=== PATIENT | female | born 1985 | race Caucasian/White ===

== ENCOUNTER 2018-03-01 21:20 | Emergency (ER) | payer OTHER ==
[~2018-03-01] VITALS: Ht 180.3 cm; Wt 93.0 kg
[2018-03-01 22:06] LABS: BASOPHILS ABSOLUTE AUTO 0.06 K/mm3 (0.00-0.23); BASOPHILS PERCENT AUTO 1 % (0-2); EOSINOPHILS ABSOLUTE AUTO 0.29 K/mm3 (0.00-0.68); EOSINOPHILS PERCENT AUTO 3 % (0-6); Hematocrit 35.7 % (33.0-51.0); Hemoglobin 11.6 g/dL (11.5-16.0); IMMATURE GRAN ABSOLUTE AUTO 0.06 K/mm3 (0.00-0.10); IMMATURE GRAN PERCENT AUTO 1 % (0-1); LYMPHOCYTES PERCENT AUTO 20 % (21-46); MONOCYTES ABSOLUTE AUTO 0.41 K/mm3 (0.16-1.47); MONOCYTES PERCENT AUTO 4 % (4-13); Mean Corpuscular HGB 28.9 pg (26.0-34.0); Mean Corpuscular HGB Conc 32.5 g/dL (31.5-36.5); Mean Corpuscular Volume 89 fL (80-100); NEUTROPHILS ABSOLUTE AUTO 7.04 K/mm3 (1.96-9.15); NEUTROPHILS PERCENT AUTO 72 % (41-73); Platelet Count 364 K/mm3 (150-400); RDW Coefficient Variation 12.3 % (11.7-14.2); RDW Standard Deviation 40.4 fL (35.1-46.3); Red Blood Cell Count 4.02 M/mm3 (3.80-5.20); White Blood Cell Count 9.76 K/mm3 (4.00-11.30)
[2018-03-01 22:38] LABS: Alanine Aminotransfer (ALT/SGP 155 U/L (12-78); Albumin, Blood 3.4 g/dL (3.4-5.0); Albumin/Globulin Ratio 0.9 (0.8-1.8); Alk Phos 169 U/L (50-136); Anion Gap 8 mmol/L (6-16); Aspartate Aminotrans (AST/SGOT 60 U/L (12-37); Bilirubin, Total 0.1 mg/dL (0.1-1.0); Blood Urea Nitrogen 13 mg/dL (8-24); Bun/Creatinine Ratio 13.1 (12.0-20.0); CO2, Blood 26 mmol/L (21-32); Calcium, Blood 8.2 mg/dL (8.5-10.1); Chloride, Blood 106 mmol/L (98-108); Globulin, Blood 3.9 g/dL (2.2-4.0); Glomerular Filtration Rate >60 (60-); Glucose, Blood 126 mg/dL (70-99); Potassium, Blood 3.1 mmol/L (3.5-5.5); Sodium, Blood 140 mmol/L (136-145); Total Protein, Blood 7.3 g/dL (6.4-8.2)
[2018-03-01 23:18] LABS: Source, Urine Clean Catch
[2018-03-01 23:22] LABS: Bilirubin, Urine Neg (Neg); Blood, Urine 4+ (Neg); Glucose Qualitative, Urine Neg (Neg); Ketones, Urine 1+ (Neg); Leukocyte Esterase, Urine Neg (Neg); Nitrite, Urine Neg (Neg); Protein, Urine 2+ (Neg); Specific Gravity, Urine 1.025 (1.003-1.022); Urobilinogen, Urine NORM (Normal)
[2018-03-01 23:27] LABS: Appearance, Urine Hazy (Clear); Color, Urine Yellow (P-Yellow)
[2018-03-01 23:28] LABS: Amorphous Light ({null, 0-Heavy}); Bacteria Rare /hpf; Mucus Mod ({null, 0-Heavy}); Red Blood Cells, Urine 0-2 /hpf (0-2); Squamous Epithelial Cells Few /hpf (Few); White Blood Cells, Urine Not Seen /hpf (0-5)
[2018-03-01] MEDS ORDERED: IRON PO (23:50)
[2018-03-01] MEDS ORDERED: MEDR10 PO (23:52)
== END 2018-03-02 00:06 | disposition home or self-care (01) ==
LOC: ER 21:20
PROVIDERS: Emergency Medicine
DX: N93.9 Abnormal uterine and vaginal bleeding, unspecified (principal); Z87.891 Personal history of nicotine dependence; Z79.899 Other long term (current) drug therapy
CPT/HCPCS: 80053; 81001; 84703; 85025; 86900; 86901; 99284

== ENCOUNTER 2018-09-03 20:14 | Emergency (ER) | payer OTHER ==
[~2018-09-03] VITALS: Ht 180.3 cm; Wt 93.0 kg
[~2018-09-03 20:14] MED LIST: IRON PO; MEDR10 PO
== END 2018-09-03 21:44 | disposition home or self-care (01) ==
LOC: ER 20:14
DX: L72.8 Other follicular cysts of the skin and subcutaneous tissue (principal); Z79.899 Other long term (current) drug therapy; Z87.891 Personal history of nicotine dependence
CPT/HCPCS: 99283

== ENCOUNTER → 2018-10-03 | Outpatient (CLI) | payer OTHER ==
[~2018-10-03] MED LIST changes: +Bactrim Ds Tab1 EACH PO; +CLIN300 PO; +ESCI10 PO; +ESTARYLLA1 EACH PO; +FERSU300 PO
[2018-10-07 15:07] LABS: HPV 16 Negative (Negative); HPV 18 Negative (Negative); HPV OTHER HR TYPES Negative (Negative)
== END | disposition home or self-care (01) ==
LOC: LAB EV 14:58 → LAB SHORT 14:58
PROVIDERS: Physician Assistant
DX: Z01.419 Encounter for gynecological examination (general) (routine) without abnormal findings (principal); L02.31 Cutaneous abscess of buttock
CPT/HCPCS: 87070; 87075; 87077; 87147; 87186; 87205; 87624; G0145

== ENCOUNTER 2018-10-14 21:44 | Inpatient (IN) | payer OTHER ==
[~2018-10-14] VITALS: Ht 177.8 cm; Wt 99.4 kg
[~2018-10-14 21:44] MED LIST changes: -Bactrim Ds Tab1 EACH PO; -CLIN300 PO; -ESCI10 PO; -ESTARYLLA1 EACH PO; -FERSU300 PO
[2018-10-14] MEDS ORDERED: Bactrim Ds Tab1 EACH PO (22:31)
[2018-10-14] MEDS ORDERED: ESCI10 PO (22:32)
[2018-10-14 22:59] LABS: BASOPHILS ABSOLUTE AUTO 0.03 K/mm3 (0.00-0.23); BASOPHILS PERCENT AUTO 0 % (0-2); EOSINOPHILS ABSOLUTE AUTO 0.06 K/mm3 (0.00-0.68); EOSINOPHILS PERCENT AUTO 1 % (0-6); Hemoglobin 11.4 g/dL (11.5-16.0); IMMATURE GRAN ABSOLUTE AUTO 0.02 K/mm3 (0.00-0.10); IMMATURE GRAN PERCENT AUTO 0 % (0-1); LYMPHOCYTES ABSOLUTE AUTO 0.93 K/mm3 (0.84-5.20); LYMPHOCYTES PERCENT AUTO 11 % (21-46); MONOCYTES PERCENT AUTO 7 % (4-13); Mean Corpuscular HGB 27.3 pg (26.0-34.0); Mean Corpuscular HGB Conc 31.7 g/dL (31.5-36.5); Mean Corpuscular Volume 86 fL (80-100); Mean Platelet Volume 10.6 fL (9.1-12.4); NEUTROPHILS ABSOLUTE AUTO 7.14 K/mm3 (1.96-9.15); NEUTROPHILS PERCENT AUTO 81 % (41-73); Platelet Count 263 K/mm3 (150-400); RDW Coefficient Variation 14.2 % (11.7-14.2); RDW Standard Deviation 44.3 fL (35.1-46.3); Red Blood Cell Count 4.17 M/mm3 (3.80-5.20); White Blood Cell Count 8.78 K/mm3 (4.00-11.30)
[2018-10-14 23:17] LABS: Alanine Aminotransfer (ALT/SGP 43 U/L (12-78); Albumin, Blood 3.3 g/dL (3.4-5.0); Albumin/Globulin Ratio 0.8 (0.8-1.8); Alk Phos 173 U/L (50-136); Anion Gap 8 mmol/L (6-16); Aspartate Aminotrans (AST/SGOT 31 U/L (12-37); Bilirubin, Total 0.2 mg/dL (0.1-1.0); Blood Urea Nitrogen 10 mg/dL (8-24); Bun/Creatinine Ratio 12.1 (12.0-20.0); CO2, Blood 24 mmol/L (21-32); Calcium, Blood 8.6 mg/dL (8.5-10.1); Chloride, Blood 107 mmol/L (98-108); Creatinine, Blood 0.83 mg/dL (0.40-1.00); Globulin, Blood 4.4 g/dL (2.2-4.0); Glomerular Filtration Rate >60 (60-); Glucose, Blood 89 mg/dL (70-99); Potassium, Blood 3.9 mmol/L (3.5-5.5); Sodium, Blood 139 mmol/L (136-145); Total Protein, Blood 7.7 g/dL (6.4-8.2)
--- NOTE | 2018-10-15 04:15 | NUR ---
REPORT RECIEVED FROM KIMANI TREVINO RN AND AWAITING PT T/F TO ROOM 302.
[2018-10-15] MEDS ORDERED: ESTARYLLA1 EACH PO (04:44)
--- NOTE | 2018-10-15 05:25 | NUR ---
T/F AND SUMMARY: PT T/F'D TO ROOM 302 VIA W/C AT 0426 W/ AT BEDSIDE. SHE'S A/OX4, INDEPENDENT IN ROOM AND IS COOPERATIVE W/CARE. PHOTOS OF RFA ABSESS WERE TAKEN AND CONSENT SIGNED. ABSESS DRAINS COPIOUS AMTS OF THICK PURULENT HEMOSANGUINOUS DISCHARGE AND HAS SURROUNDING ERYTHEMA. SHE REPORTS PAIN AT SITE W/TYLENOL PRN RECIEVED, AWAITING EFFECT. SURGICAL CX WAS CALLED TO ANSWERING SERVICE AND SHE REMAINS NPO FOR POSSIBLE PROCEDURE. SCD'S APPLIED. PT IN CONTACT ISO FOR HX MRSA AND RECENT BOIL ON BUTTOCKS. SHE IS CURRENTLY FINISHING X7 DAY BACTRIM ABX. PT DENIES COMPLAINTS OTHERWISE. VSS/AFEBRILE, NO ACUTE CHANGES. WCTM AND REPORT TO DAY RN.
--- NOTE | 2018-10-15 05:25 | NUR ---
CALLED SURGICAL CX TO DR.SPENCE KINNEY.SERVICE ON 10/15/18 AT 4337.
--- NOTE | 2018-10-15 15:37 | NUR ---
PT TRANSPORTED VIA GURNEY TO OR FOR PROCEDURE
--- NOTE | 2018-10-15 15:48 | NUR ---
INTO SDS VIA GURNEY. PT REPORTS 6-09/04 RIGHT ARM PAIN. ABSORBENT DRESSING AND COBAN IN PLACE. HISTORY AND ALLERGIES REVIEWED. NPO SINCE 0800 THIS AM. LUNGS CLEAR.
--- NOTE | 2018-10-15 17:01 | NUR ---
10/15/18 1701 Radha Reece PT ON SCHEDULED ANTIBIOTICS
--- NOTE | 2018-10-15 18:39 | NUR ---
RETURN TO ROOM VIA CIRA BERRY SLEEPY BUT ABLE TO SLOWLY STAND AND TRANSFER SELF TO BED. WOUND VAC IN PLACE TO RT ARM. DENIES PAIN AT THIS TIME. DBP IS ELEVATED AT 102, WILL MONITOR.
--- NOTE | 2018-10-16 06:31 | NUR ---
NOC SHIFT SUMMARY PT IS PLEASANT AND COOPERATIVE WITH CARE. SHE HAD A CYST REMOVED FROM HER R UPPER ARM ON 10/15. WOUND VAC TO SITE AND IS DRAINING BLOODY FLUID. AAOX4, RESP EVEN AND UNLABORED. VSS. SHE HAS SLEPT MUCH OF NIGHT. APPEARS IN NO ACUTE DISTRESS. AND NIECE IN ROOM. WILL CONTINUE TO MONITOR.
[2018-10-16 08:14] LABS: BASOPHILS ABSOLUTE AUTO 0.02 K/mm3 (0.00-0.23); BASOPHILS PERCENT AUTO 0 % (0-2); EOSINOPHILS ABSOLUTE AUTO 0.13 K/mm3 (0.00-0.68); EOSINOPHILS PERCENT AUTO 2 % (0-6); Hematocrit 32.5 % (33.0-51.0); IMMATURE GRAN ABSOLUTE AUTO 0.01 K/mm3 (0.00-0.10); IMMATURE GRAN PERCENT AUTO 0 % (0-1); LYMPHOCYTES ABSOLUTE AUTO 1.75 K/mm3 (0.84-5.20); LYMPHOCYTES PERCENT AUTO 33 % (21-46); MONOCYTES ABSOLUTE AUTO 0.26 K/mm3 (0.16-1.47); MONOCYTES PERCENT AUTO 5 % (4-13); Mean Corpuscular HGB 27.1 pg (26.0-34.0); Mean Corpuscular HGB Conc 30.8 g/dL (31.5-36.5); Mean Corpuscular Volume 88 fL (80-100); Mean Platelet Volume 10.3 fL (9.1-12.4); NEUTROPHILS PERCENT AUTO 60 % (41-73); Platelet Count 240 K/mm3 (150-400); RDW Coefficient Variation 14.3 % (11.7-14.2); RDW Standard Deviation 45.3 fL (35.1-46.3); Red Blood Cell Count 3.69 M/mm3 (3.80-5.20); White Blood Cell Count 5.37 K/mm3 (4.00-11.30)
[2018-10-16 08:38] LABS: Anion Gap 7 mmol/L (6-16); Blood Urea Nitrogen 12 mg/dL (8-24); Bun/Creatinine Ratio 15.5 (12.0-20.0); CO2, Blood 27 mmol/L (21-32); Calcium, Blood 8.2 mg/dL (8.5-10.1); Chloride, Blood 107 mmol/L (98-108); Creatinine, Blood 0.78 mg/dL (0.40-1.00); Glomerular Filtration Rate >60 (60-); Glucose, Blood 98 mg/dL (70-99); Potassium, Blood 4.2 mmol/L (3.5-5.5); Sodium, Blood 141 mmol/L (136-145)
[2018-10-16 12:30] LABS: Vancomycin, Trough 11.2 ug/mL (5.0-10.0)
--- NOTE | 2018-10-16 18:49 | NUR ---
SHIFT SUMMARY PT INDEPENDENT IN ROOM. FAMILY AT BEDSIDE MOST OF DAY. WOUND VAC IN PLACE AND HAD A SMALL AMOUNT OF SEROSANGUINESS DRAINAGE. DRESSING INTACT TO RFA WITH REDNESS AROUND THE SITE THAT IS WARM AND TENDER. WILL REPORT CONDITION TO ONCOMING SHIFT.
--- NOTE | 2018-10-17 05:56 | NUR ---
SHIFT SUMMARY PT REPORTS INCREASED REDNESS AND SWELLING TO RUE DURING BEDSIDE REPORT. RUE ELEVATED, TYLENOL GIVEN TO REDUCE SWELLING, PT REPORTS IMPROVEMENT. DENIES ANY PAIN OR DISCOMFORT TO SITE. WOUND VAC IN PLACE CONTINUOUS SUCTION PATENT, DRESSING C/D/I. SMALL AMOUNT OF SS DRAINAGE NOTED. PT IS INDEPENDENT IN . VANCOMYCIN ADMINISTERED PER EMAR. AWAITING PATHOLOGY + SENSITIVITY FOR D/C ON ORAL ABX. VSS, AFEBRILE. WILL CONT TO MONITOR AND PROVIDE CARE UNTIL PRESUMED BY ONCOMING RN.
--- NOTE | 2018-10-17 16:43 | NUR ---
PATIENT A/OX4, UP INDPENDENTLY IN ROOM. VSS THIS SHIFT, ON RA. WOUND VAC TO R FA SURGICAL SITE. VANCO D/C'D AND PATIENT SWITCHED TO PO CLEOCIN. REPORTS VERY MILD PAIN, DENIES NEED FOR MEDICATION. PLAN IS TO D/C HOME TOMORROW AFTER WOUND VAC IS CHANGED AND MEASUREMENT TAKEN OF WOUND. WOUND CLINIC APPT SET UP FOR SUNDAY FOR DRESSING CHANGES. CALM AND COOPERATIVE WITH CARE, CALLS APPROPRIATELY FOR ASSISTANCE.
--- NOTE | 2018-10-18 05:50 | NUR ---
SHIFT SUMMARY NO ACUTE CHANGES TONIGHT. WOUND VAC TO R. FOREARM IS PATENT AND DRAINING SMALL AMOUNT OF SS FLUID. MILD REDNESS AND SWELLING TO AREA, RUE ELEVATED ON PILLOWS. PT DENIES ANY PAIN OR DISCOMFORT. PO CLINDAMYCIN ADMINISTERED PER ORDERS. PLAN FOR PT IS D/C HOME WITH WOUND CLINIC VISITS ONCE WOUND VAC IS APPROVED. IN ORDER TO BE APPROVED, MUST HAVE DRESSING CHANGE TODAY WITH NEW PHOTOS TAKEN AND LENGTH,WIDTH,DEPTH MEASUREMENTS COMPLETED. PT HAS WOUND CLINIC VISIT OCT 21. WILL CONT TO MONITOR AND PROVIDE CARE UNTIL PRESUMED BY ONCOMING RN.
--- NOTE | 2018-10-18 07:25 | NUR ---
ASSUMED CARE OF PT- BEDSIDE REPORT COMPLETED WITH NIGHT RN KATHY. PT ALERT AND ORIENTED AND INDEPENDENT IN THE ROOM. PT HAS Hx ANXIETY PER REPORT NO OTHER MEDICAL Hx. PT POSSITIVE CULTURE FOR MRSA IN THE WOUND. I&D PERFORMED WOUND VAC IN PLACE. PER REPORT FROM NIGHT RN, WOUND VAC NEEDS TO BE CHANGED WITH WOUND MEASUREMENTS AND PICTURES TODAY; TO FACILITATE PT DISCHARGE HOME WITH WOUND VAC.
[2018-10-18] MEDS ORDERED: FERSU300 PO (16:33)
[2018-10-18] MEDS ORDERED: CLIN300 PO (16:34)
--- NOTE | 2018-10-18 17:25 | NUR ---
DISCHARGE NOTE- PT WAS DISCHARGED HOME, GIVEN VERBAL AND WRITTEN DISCHARGE INSTRUCTIONS AND ACKNOWLEDGED UNDERSTANDING OF THEM, IV REMOVED PRIOR TO DISCHARGE. WOUND VAC REMOVED AND CHANGED AND HOME WOUND VAC IN PLACE AT THE TIME OF DISCHARGE, DONE BY THIS RN AND CORRECTION OFFICER REFORMATORY NATY PIERRE. PHOTOS TAKEN WELL MEASUREMENTS DOCUMENTATION IN HARD CHART. PT MEDICATED AFTER WOUND VAC CHANGE, NO PAIN PRIOR TO WOUND VAC CHANGE. PT ESCORTED TO THE [facility] VIA W/C; MEDS WERE FAXED TO [facility] PER PT REQUEST.
== END 2018-10-18 17:13 | disposition home or self-care (01) | DRG 844 ==
LOC: ER 21:44 → MEDS 21:45
PROVIDERS: Emergency Medicine; Internal Medicine Endocrinology, Diabetes & Metabolism; Surgery; ADMIT Hospitalist
PROC: 0HBDXZZ Excision of Right Lower Arm Skin, External Approach (ICD-10-PCS; principal; 2018-10-15 16:30)
DX: D36.7 Benign neoplasm of other specified sites (principal); L02.413 Cutaneous abscess of right upper limb; L03.113 Cellulitis of right upper limb; D50.9 Iron deficiency anemia, unspecified; N92.1 Excessive and frequent menstruation with irregular cycle; B95.62 Methicillin resistant Staphylococcus aureus infection as the cause of diseases classified elsewhere; F41.9 Anxiety disorder, unspecified
CPT/HCPCS: 36415; 73201; 80048; 80053; 80202; 82565; 83605; 85025; 87040; 87070; 87075; 87077; 87147; 87186; 87205; 88304; 96365; 96366; 96375; 96376; 99285; A9270; A9270-GY; G0378; J1885; J2250; J2405; J2704; J3010; J3370; J7050; J7120; Q9967

== ENCOUNTER 2018-10-21 00:31 | Day surgery (SDC) | payer OTHER ==
[~2018-10-21 00:31] MED LIST changes: +Bactrim Ds Tab1 EACH PO; +CLIN300 PO; +ESCI10 PO; +ESTARYLLA1 EACH PO; +FERSU300 PO
== END 2018-10-21 22:47 | disposition home or self-care (01) ==
LOC: WOUND 00:31
DX: T81.89XA Other complications of procedures, not elsewhere classified, initial encounter (principal); S51.801A Unspecified open wound of right forearm, initial encounter; Z87.2 Personal history of diseases of the skin and subcutaneous tissue

== ENCOUNTER 2018-10-23 00:20 | Day surgery (SDC) | payer OTHER | END 2018-10-23 22:42 | disposition home or self-care (01) | LOC: WOUND 00:20 | DX: T81.89XA Other complications of procedures, not elsewhere classified, initial encounter (principal); S51.801A Unspecified open wound of right forearm, initial encounter; D50.9 Iron deficiency anemia, unspecified; F41.9 Anxiety disorder, unspecified; Z87.2 Personal history of diseases of the skin and subcutaneous tissue ==

== ENCOUNTER 2018-10-25 00:42 | Day surgery (SDC) | payer OTHER | END 2018-10-26 00:12 | disposition home or self-care (01) | LOC: WOUND 00:42 | DX: T81.89XA Other complications of procedures, not elsewhere classified, initial encounter (principal); S51.801A Unspecified open wound of right forearm, initial encounter; Z87.2 Personal history of diseases of the skin and subcutaneous tissue; Z98.890 Other specified postprocedural states ==

== ENCOUNTER 2018-10-30 00:28 | Day surgery (SDC) | payer OTHER | END 2018-10-30 22:45 | disposition home or self-care (01) | LOC: WOUND 00:28 | DX: S51.801A Unspecified open wound of right forearm, initial encounter (principal); Z87.2 Personal history of diseases of the skin and subcutaneous tissue ==

== ENCOUNTER 2018-11-08 14:45 | Day surgery (SDC) | payer OTHER | END 2018-11-08 22:46 | disposition home or self-care (01) | LOC: WOUND 14:45 | DX: T81.89XA Other complications of procedures, not elsewhere classified, initial encounter (principal); S51.801D Unspecified open wound of right forearm, subsequent encounter; D64.9 Anemia, unspecified; Z87.2 Personal history of diseases of the skin and subcutaneous tissue | CPT/HCPCS: G0463 ==

== ENCOUNTER 2018-11-15 00:57 | Day surgery (SDC) | payer OTHER | END 2018-11-15 23:31 | disposition home or self-care (01) | LOC: WOUND 00:57 | DX: T81.89XD Other complications of procedures, not elsewhere classified, subsequent encounter (principal); Z87.2 Personal history of diseases of the skin and subcutaneous tissue | CPT/HCPCS: G0463 ==

== ENCOUNTER 2018-11-22 02:00 | Day surgery (SDC) | payer OTHER | END 2018-11-22 23:03 | disposition home or self-care (01) | LOC: WOUND 02:00 | DX: T81.89XA Other complications of procedures, not elsewhere classified, initial encounter (principal); S51.801D Unspecified open wound of right forearm, subsequent encounter; Z87.2 Personal history of diseases of the skin and subcutaneous tissue | CPT/HCPCS: G0463 ==

== ENCOUNTER 2018-12-06 00:14 | Day surgery (SDC) | payer OTHER | END 2018-12-06 23:49 | disposition home or self-care (01) | LOC: WOUND 00:14 | DX: T81.89XA Other complications of procedures, not elsewhere classified, initial encounter (principal); S51.801D Unspecified open wound of right forearm, subsequent encounter; D50.9 Iron deficiency anemia, unspecified; Z87.2 Personal history of diseases of the skin and subcutaneous tissue; Z98.890 Other specified postprocedural states | CPT/HCPCS: G0463 ==

== ENCOUNTER 2018-12-13 15:00 | Day surgery (SDC) | payer OTHER | END 2018-12-13 23:49 | disposition home or self-care (01) | LOC: WOUND 15:00 | DX: T81.89XA Other complications of procedures, not elsewhere classified, initial encounter (principal); S51.801D Unspecified open wound of right forearm, subsequent encounter; Z87.2 Personal history of diseases of the skin and subcutaneous tissue ==

== ENCOUNTER 2018-12-20 00:49 | Day surgery (SDC) | payer OTHER | END 2018-12-20 23:25 | disposition home or self-care (01) | LOC: WOUND 00:49 | DX: S51.801A Unspecified open wound of right forearm, initial encounter (principal); Z87.2 Personal history of diseases of the skin and subcutaneous tissue ==

== ENCOUNTER 2019-01-10 12:57 | Day surgery (SDC) | payer OTHER | END 2019-01-10 23:57 | disposition home or self-care (01) | LOC: WOUND 12:57 | DX: S51.801D Unspecified open wound of right forearm, subsequent encounter (principal); F41.9 Anxiety disorder, unspecified; D50.9 Iron deficiency anemia, unspecified; Z87.2 Personal history of diseases of the skin and subcutaneous tissue; Z79.899 Other long term (current) drug therapy | CPT/HCPCS: G0463 ==

== ENCOUNTER → 2019-05-05 | Outpatient (CLI) | payer OTHER | LOC: LAB SHORT 16:14 | DX: N39.0 Urinary tract infection, site not specified (principal) | CPT/HCPCS: 87077; 87086; 87186 ==

== ENCOUNTER → 2019-10-02 | Outpatient (CLI) | payer OTHER | END | disposition home or self-care (01) | LOC: LAB EV 18:19 → LAB SHORT 18:19 | DX: L72.3 Sebaceous cyst (principal) | CPT/HCPCS: 87070; 87075; 87076; 87205 ==

== ENCOUNTER → 2019-10-04 | Outpatient (CLI) | payer OTHER | END | disposition home or self-care (01) | LOC: LAB EV 15:15 → LAB SHORT 15:15 | DX: L72.3 Sebaceous cyst (principal) | CPT/HCPCS: 87070; 87075; 87205 ==

== ENCOUNTER 2020-12-09 07:58 | Day surgery (SDC) | payer OTHER ==
[~2020-12-09] VITALS: Ht 180.3 cm; Wt 98.2 kg
[~2020-12-09 07:58] MED LIST changes: +BUPR150ER PO
--- NOTE | 2020-12-09 13:01 | NUR ---
Patient up to Ambulate independently. Gait steady. Discharge instructions reviewed with patient. Patient verbalizes understanding. Copy given to patient to take home. Dressing to procedure site clean, dry, intact with no visible drainage, swelling, erythema or bruising noted. Patient States Post-Procedure ride home has been arranged with .
== END 2020-12-09 13:02 | disposition home or self-care (01) ==
LOC: ORSCMMR 07:58 → ORD 09:45 → ORSCMMR 09:45
PROVIDERS: Surgery
PROC: 0JBG0ZX Excision of Right Lower Arm Subcutaneous Tissue and Fascia, Open Approach, Diagnostic (ICD-10-PCS; principal; 2020-12-09 09:45)
DX: L72.11 Pilar cyst (principal)
CPT/HCPCS: 88304; J0690; J1100; J1885; J2250; J2405; J2550; J2704; J3010; J7120

== ENCOUNTER 2022-04-23 17:57 | Emergency (ER) | payer OTHER ==
[~2022-04-23] VITALS: Ht 180.3 cm; Wt 96.2 kg
[2022-04-23 18:34] LABS: BASOPHILS ABSOLUTE AUTO 0.03 K/mm3 (0.00-0.23); BASOPHILS PERCENT AUTO 0 % (0-2); EOSINOPHILS PERCENT AUTO 1 % (0-6); Hemoglobin 14.9 g/dL (11.5-16.0); IMMATURE GRAN ABSOLUTE AUTO 0.05 K/mm3 (0.00-0.10); IMMATURE GRAN PERCENT AUTO 1 % (0-1); LYMPHOCYTES ABSOLUTE AUTO 1.86 K/mm3 (0.84-5.20); LYMPHOCYTES PERCENT AUTO 23 % (21-46); MONOCYTES ABSOLUTE AUTO 0.44 K/mm3 (0.16-1.47); MONOCYTES PERCENT AUTO 5 % (4-13); Mean Corpuscular HGB 28.5 pg (26.0-34.0); Mean Corpuscular HGB Conc 33.1 g/dL (31.5-36.5); Mean Corpuscular Volume 86 fL (80-100); Mean Platelet Volume 9.8 fL (9.1-12.4); NEUTROPHILS ABSOLUTE AUTO 5.61 K/mm3 (1.96-9.15); NEUTROPHILS PERCENT AUTO 69 % (41-73); Platelet Count 370 K/mm3 (150-400); RDW Standard Deviation 40.5 fL (35.1-46.3); Red Blood Cell Count 5.22 M/mm3 (3.80-5.20); White Blood Cell Count 8.09 K/mm3 (4.00-11.30)
[2022-04-23 18:52] LABS: Albumin, Blood 3.9 g/dL (3.4-5.0); Albumin/Globulin Ratio 1.1 (0.8-1.8); Bilirubin, Total 0.3 mg/dL (0.1-1.0); Bun/Creatinine Ratio 13.4 (12.0-20.0); Calcium, Blood 9.1 mg/dL (8.5-10.1); Creatinine, Blood 0.97 mg/dL (0.40-1.00); Globulin, Blood 3.7 g/dL (2.2-4.0); Potassium, Blood 3.9 mmol/L (3.5-5.5); Total Protein, Blood 7.6 g/dL (6.4-8.2)
== END 2022-04-23 21:17 | disposition home or self-care (01) ==
LOC: ER 17:57
PROVIDERS: Emergency Medicine
DX: R07.89 Other chest pain (principal); M25.472 Effusion, left ankle; R60.0 Localized edema; Z79.899 Other long term (current) drug therapy; Z87.891 Personal history of nicotine dependence
CPT/HCPCS: 36415; 71046; 80053; 85025; 85379; 93005; 93010; 99284-25